=== PATIENT | female | born 1935 | race Caucasian/White ===

== ENCOUNTER 2017-02-09 08:42 | Emergency (ER) | payer OTHER, BC ==
[~2017-02-09] VITALS: Ht 160 cm; Wt 67.9 kg
[~2017-02-09 08:42] MED LIST: ACTONEL150 MG PO; ACTONEL75 MG PO; ALDACTONE50 MG PO; ASPIR 8181 M1 PO; ASPIRIN E.C.81 M1 PO; CALCITRIOL0.5 MCG PO; DIGITEK125 MC2 PO; DIOVAN HCT 11 TABLET PO; ELIQUIS2.5 MG PO; ERGOCALCIF50000 UNIT PO; ESTRACE42.5 GM VG; FLOVENT 22120 INHALA IH; FUROSEMIDE20 MG PO; JANUVIA25 MG PO; LASIX40 MG PO; LIPITOR40 MG PO; Lopressor PO; METOPROLOL TAR100 MG PO; MUCINEX DM1 TABLET PO; PACERONE200 M1 PO; PROAIR HFA8.5 GM IH; PROVENTIL2.5 MG/3 M IH; ROCALTROL0.25 MCG PO; Rocaltrol PO; SOTALOL80 MG PO; SPIRONOLACTONE25 MG PO; TOPROL XL50 MG PO; TRAMADOL HCL50 MG PO; VALSARTAN160 MG PO; VERAMYST10 GM NS; ZESTRIL20 MG PO; ZYRTEC10 M2 PO
[2017-02-09 09:20] LABS: HEMATOCRIT 44.2 % (36.0-46.0); MCH 29.4 PG (29.0-34.0); MCHC 32.6 G/DL (30.0-36.0); MCV 90.2 FL (83-99); PLATELET COUNT 201 K/uL (156-360); RBC DIS.WIDTH-CV 14.6 % (11.8-14.6); RBC DIS.WIDTH-SD 48.7 % (39-53); WHITE BLOOD COUNT 13.1 K/uL (4.1-10.2)
[2017-02-09 09:31] LABS: CHLORIDE 99 mEq/L (99-109); POTASSIUM 5.3 mEq/L (3.7-5.4); SODIUM 133 mEq/L (136-147)
[2017-02-09 09:33] LABS: GLUCOSE 373 mg/dL (70-99)
[2017-02-09 09:34] LABS: ANION GAP 10 MEQ/L (2-14)
[2017-02-09 09:37] LABS: GFR ESTIMATE (CALCULATED) 35 mL/min/
[2017-02-09 09:38] LABS: UREA NITROGEN (BUN) 24 mg/dL (9-23)
[2017-02-09 12:39] LABS: TROP-I INTERPRETATION NEGATIVE; TROPONIN-I 0.04 ng/mL (0.0-0.30)
[2017-02-09 12:51] LABS: INTER. NORMALIZED RATIO 1.5; PROTHROMBIN TIME 16.8 SEC (10.2-12.9)
[2017-02-09] MEDS ORDERED: AZITHROMYCIN250 MG PO (12:54)
[2017-02-09] MEDS ORDERED: TESSALON PERLE100 MG PO (12:54)
[2017-02-09 13:18] VITALS: BP 119/82
== END 2017-02-09 13:19 | disposition home or self-care (01) ==
LOC: EME 08:42
PROVIDERS: Physician Assistant Medical
DX: J20.9 Acute bronchitis, unspecified (principal); J45.909 Unspecified asthma, uncomplicated; E11.9 Type 2 diabetes mellitus without complications; Z79.84 Long term (current) use of oral hypoglycemic drugs; I10 Essential (primary) hypertension; K21.9 Gastro-esophageal reflux disease without esophagitis; Z95.0 Presence of cardiac pacemaker; Z95.5 Presence of coronary angioplasty implant and graft; Z79.82 Long term (current) use of aspirin
CPT/HCPCS: 71020; 80048; 80162; 83880; 84484; 85027; 85610; 93005; 99281; 99284

== ENCOUNTER 2017-04-30 18:15 | Inpatient (IN) | payer OTHER, BC ==
[~2017-04-30] VITALS: Ht 160 cm; Wt 65.7 kg
[~2017-04-30 18:15] MED LIST changes: +AZITHROMYCIN250 MG PO; +JANUVIA25 M1 PO; -JANUVIA25 MG PO; +TESSALON PERLE100 MG PO
[2017-04-30 19:29] LABS: HEMATOCRIT 38.1 % (36.0-46.0); HEMOGLOBIN 12.5 G/DL (11.9-15.5); MCH 28.3 PG (29.0-34.0); MCHC 32.8 G/DL (30.0-36.0); MCV 86.2 FL (83-99); PLATELET COUNT 200 K/uL (156-360); RBC DIS.WIDTH-CV 14.3 % (11.8-14.6); RBC DIS.WIDTH-SD 45.2 % (39-53); RED BLOOD COUNT 4.42 M/uL (3.80-5.20)
[2017-04-30 19:49] LABS: CHLORIDE 103 mEq/L (99-109); POTASSIUM 4.2 mEq/L (3.7-5.4); SODIUM 136 mEq/L (136-147)
[2017-04-30 19:51] LABS: GLUCOSE 269 mg/dL (70-99)
[2017-04-30 19:55] LABS: CREATININE 1.6 mg/dL (0.6-1.3); GFR ESTIMATE (CALCULATED) 33 mL/min/
[2017-04-30 19:56] LABS: UREA NITROGEN (BUN) 29 mg/dL (9-23)
[2017-04-30 20:10] LABS: TROP-I INTERPRETATION NEGATIVE; TROPONIN-I 0.01 ng/mL (0.0-0.30)
[2017-04-30] MEDS ORDERED: FUROSEMIDE20 MG PO (20:42)
[2017-04-30] MEDS ORDERED: AMARYL2 MG PO (20:44)
[2017-04-30 22:35] VITALS: BP 152/70
[2017-05-01] VITALS (7 sets, daily range): BP systolic 97–146; BP diastolic 51–68
[2017-05-01 06:09] LABS: CHLORIDE 101 MEQ/L (99-109); CREATININE 1.6 MG/DL (0.6-1.3); GFR ESTIMATE (CALCULATED) 33 mL/min/; GLUCOSE 236 mg/dL (70-99); MAGNESIUM 1.6 mg/dl (1.3-2.7); POTASSIUM 3.9 MEQ/L (3.7-5.4); SODIUM 138 MEQ/L (136-147); UREA NITROGEN (BUN) 32 mg/dL (9-23)
[2017-05-01 06:55] LABS: DIGOXIN 0.9 ng/mL (0.8-2.0)
[2017-05-01 10:18] LABS: TROP-I INTERPRETATION NEGATIVE; TROPONIN-I 0.02 ng/mL (0.0-0.30)
[2017-05-01 19:02] LABS: APPEARANCE CLEAR ((CLEAR)); BILIRUBIN NEGATIVE; BLOOD NEGATIVE; COLOR YELLOW ((YELLOW)); GLUCOSE (STRIP) NEGATIVE; KETONES NEGATIVE; LEUKOCYTES SMALL; NITRITE NEGATIVE; PROTEIN (STRIP) NEGATIVE; UROBILINOGEN 0.2 MG/DL (0.2-1.0)
[2017-05-01 19:05] LABS: BACTERIA RARE /HPF; EPITHELIAL CELLS RARE /HPF; MUCUS NONE SEEN /LPF; RED BLOOD CELLS 0-5 /HPF (0-5); UCUL ADDED? YES
[2017-05-02 04:33] VITALS: BP 139/60
[2017-05-02 05:11] LABS: BASOPHIL (%) 0.6 % (0-1); BASOPHIL COUNT 0.1 K/uL (0-0.1); EOSINOPHIL (%) 1.9 % (0-5); EOSINOPHIL COUNT 0.2 K/uL (0-0.3); HEMATOCRIT 40.1 % (36.0-46.0); HEMOGLOBIN 12.7 G/DL (11.9-15.5); IMMATURE GRANULOCYTE (%) 0.7 % (0.0-0.7); LYMPHOCYTE COUNT 2.2 K/uL (1.0-2.8); MCH 27.1 PG (29.0-34.0); MCHC 31.7 G/DL (30.0-36.0); MCV 85.5 FL (83-99); MONOCYTE (%) 7.3 % (3-12); MONOCYTE COUNT 0.7 K/uL (0-0.8); NEUTROPHIL (%) 67.5 % (45-76); NEUTROPHIL COUNT 6.7 K/uL (1.8-6.4); PLATELET COUNT 198 K/uL (156-360); RBC DIS.WIDTH-CV 14.5 % (11.8-14.6); RBC DIS.WIDTH-SD 44.5 % (39-53); RED BLOOD COUNT 4.69 M/uL (3.80-5.20); WHITE BLOOD COUNT 9.9 K/uL (4.1-10.2)
[2017-05-02 05:59] LABS: ALKALINE PHOSPHATASE 89 IU/L (3-129); ALT (GPT) 3 IU/L (3-49); AST (GOT) 14 IU/L (2-34); CHLORIDE 101 MEQ/L (99-109); CREATININE 1.5 MG/DL (0.6-1.3); GFR ESTIMATE (CALCULATED) 35 mL/min/; GLUCOSE 196 mg/dL (70-99); POTASSIUM 4.5 MEQ/L (3.7-5.4); SODIUM 140 MEQ/L (136-147); TOTAL BILIRUBIN 1.5 MG/DL (0.0-1.0); TOTAL PROTEIN 6.3 G/DL (6.4-8.3); UREA NITROGEN (BUN) 36 mg/dL (9-23)
[2017-05-02 08:12] VITALS: BP 129/63
== END 2017-05-02 15:55 | disposition home or self-care (01) | DRG 291 ==
LOC: EME 18:15 → EDOF 20:45 → ENRESERV 20:47 → 4EAST 22:24 → ENRESERV 22:24 → 4EAST 05-02 15:55
PROVIDERS: Hospitalist; Internal Medicine; Internal Medicine Cardiovascular Disease; Physician Assistant Medical
DX: I13.0 Hypertensive heart and chronic kidney disease with heart failure and stage 1 through stage 4 chronic kidney disease, or unspecified chronic kidney disease (principal); I50.23 Acute on chronic systolic (congestive) heart failure; N18.3 Chronic kidney disease, stage 3 (moderate); E11.22 Type 2 diabetes mellitus with diabetic chronic kidney disease; I48.1 Persistent atrial fibrillation; I48.2 Chronic atrial fibrillation; I42.0 Dilated cardiomyopathy; I44.7 Left bundle-branch block, unspecified; J44.9 Chronic obstructive pulmonary disease, unspecified; K21.9 Gastro-esophageal reflux disease without esophagitis; E78.5 Hyperlipidemia, unspecified; Z95.810 Presence of automatic (implantable) cardiac defibrillator; Z79.01 Long term (current) use of anticoagulants; Z79.84 Long term (current) use of oral hypoglycemic drugs; Z79.82 Long term (current) use of aspirin; Z87.891 Personal history of nicotine dependence; Z90.710 Acquired absence of both cervix and uterus; Z82.49 Family history of ischemic heart disease and other diseases of the circulatory system
CPT/HCPCS: 71046; 80048; 80053; 80162; 81003; 82948; 83735; 83880; 84484; 85025; 85027; 85379; 87086; 93005; 99202; 99281; 99285; J1815; J1940